=== PATIENT | female | born 1970 | race Caucasian/White ===

== ENCOUNTER 2020-05-23 21:33 | Emergency (ER) | payer MEDICAID, OTHER ==
[~2020-05-23] VITALS: Ht 170.2 cm; Wt 64.5 kg
--- NOTE | 2020-05-23 21:57 | NUR ---
pt is 49yo female c/o rt breast lump x1 week, initially there was pain, no redness, no swelling, establishing with PMD, h/o cysts, pt said it feels like cyst she has had in the past. waiting to be evaluated by provider
[2020-05-23 23:47] LABS: MEAN CORPUSCULAR HGB CONC 34.6 g/dL (33.0-36.5); MEAN CORPUSCULAR VOLUME 87.4 FL (78-98); WHITE BLOOD COUNT 8.2 X10'3 (4.5-11.0)
[2020-05-23 23:49] LABS: BASOPHILS # (AUTO) 0.1 X10'3 (0-0.2); BASOPHILS % (AUTO) 1.4 % (0-1); EOSINOPHILS # (AUTO) 0.3 X10'3 (0-0.9); EOSINOPHILS % (AUTO) 3.5 % (0-6); HEMATOCRIT 37.5 % (35.0-45.0); LYMPHOCYTES # (AUTO) 2.6 X10'3 (1.1-4.8); LYMPHOCYTES % (AUTO) 31.8 % (21-51); MEAN CORPUSCULAR HEMOGLOBIN 30.3 PG (27.0-31.0); MEAN PLATELET VOLUME 7.7 FL (7.4-10.4); MONOCYTES # (AUTO) 0.6 X10'3 (0-0.9); MONOCYTES % (AUTO) 7.8 % (2-12); NEUTROPHILS # (AUTO) 4.5 X10'3 (1.8-7.7); NEUTROPHILS % (AUTO) 55.5 % (42-75); PLATELET COUNT 304 X10'3 (140-440); RED BLOOD COUNT 4.29 X10'6 (4.20-5.60)
[2020-05-24] MEDS ORDERED: iohexol 300mg/ml 100ml inj. ONE (00:24)
[2020-05-24 00:59] LABS: ALANINE AMINOTRANSFERASE 10 U/L (12-78); ALBUMIN 3.7 G/DL (3.4-5.0); ALKALINE PHOSPHATASE 58 IU/L (46-116); ANION GAP 10 (8-16); ASPARTATE AMINO TRANSFERASE 20 U/L (10-37); BILIRUBIN,TOTAL 0.2 MG/DL (0.1-1.0); BLOOD UREA NITROGEN 20 MG/DL (7-18); BUN/CREATININE RATIO 23.5 (6.6-38.0); C-REACTIVE PROTEIN 0.29 MG/DL (0.0-0.5); CALCIUM 8.7 MG/DL (8.5-10.1); CHLORIDE 103 MMOL/L (99-107); CREATININE 0.85 MG/DL (0.40-0.90); GLUCOSE 91 MG/DL (70-104); POTASSIUM 3.7 MMOL/L (3.5-5.1); SODIUM 138 MMOL/L (135-145); TOTAL CARBON DIOXIDE 24.6 MMOL/L (24-32); TOTAL PROTEIN 7.4 G/DL (6.4-8.2); eGFR 71 ML/MIN
--- NOTE | 2020-05-24 01:45 | NUR ---
PT TO CT
--- NOTE | 2020-05-24 01:59 | NUR ---
PT BACK FROM CT
[2020-05-24 03:14] VITALS: BP 121/66
== END 2020-05-24 03:36 | disposition home or self-care (01) ==
LOC: ER 21:35
DX: N63.0 Unspecified lump in unspecified breast (principal); R91.1 Solitary pulmonary nodule; Z88.8 Allergy status to other drugs, medicaments and biological substances
CPT/HCPCS: 36415; 71260; 80053; 85025; 85651; 86140; 99285; Q9967